=== PATIENT | female | born 1995 | race Caucasian/White ===

== ENCOUNTER 2016-04-03 13:10 | Emergency (ER) | payer BC ==
[2016-04-03] MEDS ORDERED: NS 0.9% 1000 ML* 1,000 ML IV ONE (13:51)
[2016-04-03] MEDS ORDERED: Ketorolac INJ* 30 MG/ML 1 ML VIAL IV ONE (13:51)
--- NOTE | 2016-04-03 13:54 | ED ---
Influenza-Like Illness - HPI Summary HPI Summary: Patient presents due to mouth lesions that appeared last week after she had flu- like symptoms. Last week she had a fever, body aches, and congestion. Seen by [facility] on 03/29 dx with pharyngitis and given steriods. Seen by PCP 03/31 did blood work and gave lidocaine mouth rinse with minimal relief. The lab work has not returned and she is concerned because she can't eat or drink without extreme pain. She took a shower this AM and felt dizzy. She has not taken any medication. Other than dizziness, flu-like symptoms have improved. She has not had an outbreak like this before. She has lesions on her lip, in her mouth and on three of her fingers. One of the lesions ruptured last week and has begun to scab over. Today she denies fever, chills, N/V/D. - History of Current Complaint Hx Obtained From: Patient Onset/Duration: Gradual Onset Severity: Severe Associated Signs & Symptoms: Nasal Congestion <Ze Ward - Last Filed: 04/06/16 11:55> <Nette Quiroz - Last Filed: 04/08/16 07:25> - History of Current Complaint Chief Complaint: EDGeneral Time Seen by Provider: 04/03/16 13:30 - Allergy/Home Medications Allergies/Adverse Reactions: Allergies Allergy/AdvReac Type Severity Reaction Status Date / Time Kiwi Extract Allergy Severe TONGUE, Verified 06/22/15 18:43 THROAT SWELLING PMH/Surg Hx/FS Hx/Imm Hx GI History: Reports: Hx Ulcer - gerd minimal Infectious Disease History: No Infectious Disease History: Denies: History Other Infectious Disease, Traveled Outside the [place] in Last 30 Days - Family History Known Family History: Positive: None - neg for HTn or cad - Social History Occupation: Employed Full-time Lives: With Family Alcohol Use: None Substance Use Type: Reports: None Smoking Status (MU): Former Smoker <Ze Ward - Last Filed: 04/06/16 11:55> Review of Systems Negative: Fever, Chills Positive: Sore Throat - buccal mucosal lesions diffusely present; lesions noted on tongue. Negative: Ear Ache, Nasal Discharge Negative: Chest Pain Negative: Cough Negative: Vomiting, Diarrhea, Nausea Positive: Other - pea size vesicle on dorsum of right small and index finger; same on left middle finger; bottom lip has dime size scabbing lesion. Negative : Bruising Negative: Headache All Other Systems Reviewed And Are Negative: Yes <Ze Ward - Last Filed: 04/06/16 11:55> Physical Exam Triage Information Reviewed: Yes Vital Signs On Initial Exam: Initial Vitals Temp Pulse Resp BP Pulse Ox 97.2 F 111 16 114/62 100 04/03/16 13:12 04/03/16 13:12 04/03/16 13:12 04/03/16 13:12 04/03/16 13:12 Vital Signs Reviewed: Yes Appearance: Positive: Well-Appearing, No Pain Distress, Well-Nourished Skin: Positive: Warm, Skin Color Reflects Adequate Perfusion, Dry, Tender, Soft , Weeping Skin/Lesions - pea size vesicle on dorsum of right small and index finger; same on left middle finger; bottom lip has dime size scabbing lesion Head/Face: Positive: Normal Head/Face Inspection Eyes: Positive: EOMI, ALEKSANDRA, Conjunctiva Clear ENT: Positive: Hearing grossly normal, Pharyngeal erythema - diffuse oral lesions on buccal mucosa and tongue, TMs normal Neck: Positive: Supple, Nontender, No Lymphadenopathy Respiratory/Lung Sounds: Positive: Clear to Auscultation, Breath Sounds Present Cardiovascular: Positive: Tachycardia Abdomen Description: Positive: Nontender, Soft Bowel Sounds: Positive: Present Musculoskeletal: Positive: Strength/ROM Intact. Negative: Edema Left, Edema Right Neurological: Positive: Sensory/Motor Intact, Alert, Oriented to Person Place, Time, NV Bundle Intact Distally Psychiatric: Positive: Affect/Mood Appropriate AVPU Assessment: Alert <Ze Ward - Last Filed: 04/06/16 11:55> Vital Signs On Initial Exam: Initial Vitals Temp Pulse Resp BP Pulse Ox 97.2 F 111 16 114/62 100 04/03/16 13:12 04/03/16 13:12 04/03/16 13:12 04/03/16 13:12 04/03/16 13:12 <Nette Quiroz - Last Filed: 04/08/16 07:25> Diagnostics - Vital Signs Vital Signs Temp Pulse Resp BP Pulse Ox 04/03/16 13:12 97.2 F 111 16 114/62 100 - Laboratory Result Diagrams: 04/03/16 14:00 04/03/16 14:00 Lab Statement: Any lab studies that have been ordered have been reviewed, and results considered in the medical decision making process. <Ze Ward - Last Filed: 04/06/16 11:55> - Vital Signs Vital Signs Temp Pulse Resp BP Pulse Ox 04/03/16 16:16 97.9 F 89 18 128/74 04/03/16 13:12 97.2 F 111 16 114/62 100 - Laboratory Lab Results: Lab Results 04/03/16 04/03/16 04/03/16 Range/Units 13:40 14:00 14:00 WBC 8.3 (3.5-10.8) 10^3/ul RBC 5.07 (4.0-5.4) 10^6/ul Hgb 12.9 (12.0-16.0) g/dl Hct 40 (35-47) % MCV 78 L (80-97) fL MCH 25 L (27-31) pg MCHC 32 (31-36) g/dl RDW 14 (10.5-15) % Plt Count 256 (150-450) 10^3/ul MPV 9 (7.4-10.4) um3 Neut % (Auto) 53.5 (38-83) % Lymph % (Auto) 37.8 (25-47) % Wythe % (Auto) 6.4 (1-9) % Eos % (Auto) 1.2 (0-6) % Baso % (Auto) 1.1 (0-2) % Absolute Neuts (auto) 4.5 (1.5-7.7) 10^3/ul Absolute Lymphs (auto) 3.2 (1.0-4.8) 10^3/ul Absolute Monos (auto) 0.5 (0-0.8) 10^3/ul Absolute Eos (auto) 0.1 (0-0.6) 10^3/ul Absolute Basos (auto) 0.1 (0-0.2) 10^3/ul Absolute Nucleated RBC 0 10^3/ul Nucleated RBC % 0 Sodium 137 (133-145) mmol/L Potassium 3.9 (3.5-5.0) mmol/L Chloride 103 (101-111) mmol/L Carbon Dioxide 25 (22-32) mmol/L Anion Gap 9 (2-11) mmol/L BUN 11 (6-24) mg/dL Creatinine 0.68 (0.51-0.95) mg/dL Est GFR ( Amer) 140.5 (>60) Est GFR (Non-Af Amer) 109.2 (>60) BUN/Creatinine Ratio 16.2 (8-20) Glucose 88 (70-100) mg/dL Calcium 9.4 (8.6-10.3) mg/dL Total Bilirubin 0.40 (0.2-1.0) mg/dL AST 17 (13-39) U/L ALT 26 (7-52) U/L Alkaline Phosphatase 75 (34-104) U/L C-Reactive Protein 60.59 H (< 5.00) mg/L Total Protein 7.4 (6.4-8.9) g/dL Albumin 3.6 (3.2-5.2) g/dL Globulin 3.8 (2-4) g/dL Albumin/Globulin Ratio 0.9 L (1-3) HSV I DNA PCR Positive (Negative) HSV II DNA PCR Negative (Negative) Dermal HSV & VZV Source Finger lesion swab Varicella-Zoster Source Finger lesion swab VZV DNA (PCR) Negative (Negative) Non-Resp Viral Culture TNP Result Diagrams: 04/03/16 14:00 04/03/16 14:00 Lab Statement: Any lab studies that have been ordered have been reviewed, and results considered in the medical decision making process. <Nette Quiroz - Last Filed: 04/08/16 07:25> Flu Symptom Course/Dx - Diagnoses Differential Diagnosis/HQI/PQRI: Positive: Bronchitis, Influenza, Pneumonia, RSV , Upper Respiratory Infection <Ze Ward - Last Filed: 04/06/16 11:55> <Nette Quiroz - Last Filed: 04/08/16 07:25> - Diagnoses Provider Diagnoses: Viral syndrome Discharge <Ze Ward - Last Filed: 04/06/16 11:55> <Nette Quiroz - Last Filed: 04/08/16 07:25> - Discharge Plan Condition: Stable Disposition: HOME Prescriptions: Acyclovir CAP* [Zovirax CAP*] 400 mg PO TID #42 cap Patient Education Materials: Viral Syndrome (ED) Referrals: Red Hernandez, SENIOR GAME DEVELOPER [Primary Care Provider] - Additional Instructions: Please follow-up with your primary care provider in 2-3 days to discuss your continued symptoms and today's visit. Take your medication as prescribed until it is completely gone and use ibuprofen 600mg three times daily with meals for the next 3-5 days to reduce pain and swelling. Return to the emergency department if symptoms worsen. Attestations User Type: Provider - I was available for consult. This patient was seen by the SHIRA. The patient was not presented to, seen by, or examined by me. - SATYA <Nette Quiroz - Last Filed: 04/08/16 07:25>
[2016-04-03 14:13] LABS: Hematocrit 40 % (35-47); Hemoglobin 12.9 g/dl (12.0-16.0); Mean Corpuscular HGB Conc 32 g/dl (31-36); Mean Corpuscular Hemoglobin 25 pg (27-31); Mean Corpuscular Volume 78 fL (80-97); Mean Platelet Volume 9 um3 (7.4-10.4); Red Blood Count 5.07 10^6/ul (4.0-5.4); Red Cell Distribution Width 14 % (10.5-15); White Blood Count 8.3 10^3/ul (3.5-10.8)
[2016-04-03 14:14] LABS: Add Diff/Slide Review? Slide Review Added; Comments Flag Yes
[2016-04-03 14:28] LABS: Albumin 3.6 g/dL (3.2-5.2); BUN/Creatinine Ratio 16.2 (8-20); C Reactive Protein 60.59 mg/L (< 5.00); Calcium 9.4 mg/dL (8.6-10.3); EGFR African American 140.5 (>60); EGFR Non-African American 109.2 (>60); Globulin 3.8 g/dL (2-4); Total Bilirubin 0.4 mg/dL (0.2-1.0); Total Protein 7.4 g/dL (6.4-8.9)
[2016-04-03 14:30] LABS: Potassium 3.9 mmol/L (3.5-5.0)
[2016-04-03] MEDS ORDERED: Acyclovir* 200 MG CAP PO ONE (15:59)
[2016-04-03 16:17] VITALS: BP 128/74
[2016-04-05 23:01] LABS: HS/VZ Source FINGER LESION SWAB; Varicella Zoster Result Negative (Negative); Varicella Zoster Source FINGER LESION SWAB
== END 2016-04-03 16:16 | disposition home or self-care (01) ==
LOC: ED 13:10
DX: B34.9 Viral infection, unspecified (principal); Z87.891 Personal history of nicotine dependence
CPT/HCPCS: 36415; 80053; 85025; 86140; 87252; 87529; 87798; 96374; 96375; 99283; A9270-GY; J1885

== ENCOUNTER 2016-06-21 11:22 | Emergency (ER) | payer BC ==
[2016-06-21 12:22] VITALS: BP 110/68
--- NOTE | 2016-06-21 14:53 | UC ---
FLU HPI - HPI Summary HPI Summary: TWO DAYS OF COUGH WORSE AT NIGHT, NO FEVER, HAD SOME VOMITING YESTERDAY, FROM COUGHING. NO SORE THROAT. 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 Hx Last Menstrual Period: 1 week ago, on oral control Onset/Duration: Gradual Onset, Lasting Days, Still Present Severity Currently: Mild Severity Initially: Mild Pain Intensity: 4 Pain Scale Used: 0-10 Numeric Associated Signs & Symptoms: Positive: Cough, Nasal Congestion, Vomiting Related Hx: Possible Flu/Infectious Exposure - Allergy/Home Medications Allergies/Adverse Reactions: Allergies Allergy/AdvReac Type Severity Reaction Status Date / Time Kiwi Extract Allergy Severe TONGUE, Verified 06/21/16 12:22 THROAT SWELLING Fish Allergy Allergy GI Upset Verified 06/21/16 12:22 PMH/Surg Hx/FS Hx/Imm Hx Previously Healthy: Yes GI/ History Of: Reports: Ulcer - gerd minimal - Surgical History Surgical History: None - Family History Known Family History: Positive: None - neg for HTn or cad Negative: Respiratory Disease - Social History Occupation: Employed Full-time Lives: With Family Alcohol Use: None Substance Use Type: None Smoking Status (MU): Former Smoker When Did the Patient Quit Smoking/Using Tobacco: 1 WK AGO - Immunization History Most Recent Tetanus Shot: 2010 Vaccination Up to Date: Yes Review of Systems Constitutional: Negative Skin: Negative Eyes: Negative ENT: Negative, Nasal Discharge Respiratory: Cough Cardiovascular: Negative Gastrointestinal: Vomiting Genitourinary: Negative Motor: Negative Neurovascular: Negative Musculoskeletal: Myalgia Neurological: Negative Psychological: Negative All Other Systems Reviewed And Are Negative: Yes Physical Exam Triage Information Reviewed: Yes Appearance: No Pain Distress, Well-Nourished, Ill-Appearing - MILD Vital Signs: Initial Vital Signs Temp 98.7 F 06/21/16 12:18 Pulse 98 06/21/16 12:18 Resp 16 06/21/16 12:18 BP 110/68 06/21/16 12:18 Pulse Ox 98 06/21/16 12:18 Vital Signs Reviewed: Yes Eye Exam: Normal Eyes: Positive: Conjunctiva Clear ENT: Positive: Hearing grossly normal, Pharynx normal, TM dull Dental Exam: Normal Neck exam: Normal Neck: Positive: Supple, Nontender, No Lymphadenopathy Respiratory Exam: Other - COUGH Respiratory: Positive: Chest non-tender, Lungs clear, Normal breath sounds, No respiratory distress, No accessory muscle use Cardiovascular Exam: Normal Cardiovascular: Positive: RRR, No Murmur Abdominal Exam: Normal Abdomen Description: Positive: Nontender, No Organomegaly Musculoskeletal Exam: Normal Musculoskeletal: Positive: Strength Intact, ROM Intact, No Edema Neurological Exam: Normal Psychological Exam: Normal Psychological: Positive: Normal Response To Family Skin Exam: Normal Flu Course/Dx - Differential Dx/Diagnosis Differential Diagnosis/HQI/PQRI: Bronchitis, Influenza, Upper Respiratory Infection Provider Diagnoses: UPPER RESPIRATORY INFECTION Discharge - Discharge Plan Condition: Stable Disposition: HOME Prescriptions: Benzonatate CAP* [Tessalon 100 MG CAP*] 100 mg PO TID PRN #15 cap PRN Reason: Cough Patient Education Materials: Upper Respiratory Infection (ED), Viral Syndrome ( ED) Forms: *Work Release Referrals: Bere Moya MD [Primary Care Provider] -
== END 2016-06-21 14:02 | disposition home or self-care (01) ==
LOC: UCCORT 11:22
DX: J06.9 Acute upper respiratory infection, unspecified (principal); Z87.891 Personal history of nicotine dependence
CPT/HCPCS: 87502; 99211; G0463

== ENCOUNTER 2016-07-31 06:51 | Emergency (ER) | payer BC ==
[2016-07-31] MEDS ORDERED: Morphine INJ* 4 MG/ML 1 ML SYRINGE IV ONE ×2 (07:17→07:52)
[2016-07-31] MEDS ORDERED: NS 0.9% 1000 ML* 1,000 ML IV ONE (07:17)
[2016-07-31] MEDS ORDERED: Ondansetron INJ* 2 MG/ML VIAL IV ONE (07:17)
[2016-07-31 07:36] LABS: Hematocrit 39 % (35-47); Hemoglobin 12.4 g/dl (12.0-16.0); Mean Corpuscular HGB Conc 32 g/dl (31-36); Mean Corpuscular Hemoglobin 25 pg (27-31); Mean Corpuscular Volume 79 fL (80-97); Mean Platelet Volume 10 um3 (7.4-10.4); Red Blood Count 4.91 10^6/ul (4.0-5.4); Red Cell Distribution Width 14 % (10.5-15)
[2016-07-31 07:51] LABS: ALT 35 U/L (7-52); AST 21 U/L (13-39); Albumin 3.7 g/dL (3.2-5.2); Alkaline Phosphatase 69 U/L (34-104); Anion Gap 8 mmol/L (2-11); BUN/Creatinine Ratio 13.1 (8-20); Blood Urea Nitrogen 13 mg/dL (6-24); CO2 Carbon Dioxide 22 mmol/L (22-32); Calcium 9.8 mg/dL (8.6-10.3); Chloride 108 mmol/L (101-111); EGFR African American 91.1 (>60); EGFR Non-African American 70.8 (>60); Globulin 3.6 g/dL (2-4); Glucose 132 mg/dL (70-100); Potassium 4.1 mmol/L (3.5-5.0); Sodium 138 mmol/L (133-145); Total Protein 7.3 g/dL (6.4-8.9)
[2016-07-31] MEDS ORDERED: Ketorolac INJ* 30 MG/ML 1 ML VIAL IV PUSH ONE (08:16)
[2016-07-31 09:11] LABS: Urine Bacteria Absent (Absent); Urine Bilirubin Negative (Negative); Urine Glucose Negative (Negative); Urine Nitrite Negative (Negative)
--- NOTE | 2016-07-31 09:15 | RAD ---
INDICATION: Left flank pain. COMPARISON: None TECHNIQUE: Noncontrast axial source images were acquired from the level hemidiaphragms to the symphysis pubis as part of CT imaging for renal stone. Lung bases: The lung bases are clear. Liver: The liver is enlarged with findings of hepatic steatosis. There are focal areas of sparing. Suggest correlation with liver enzymes. Noncontrast imaging shows no evidence of a hepatic mass or ductal dilatation. Gallbladder: There are no calcified gallstones. There is no evidence of wall thickening or pericholecystic fluid.. Spleen: The spleen is normal in size. The noncontrast CT appearance is normal. Pancreas: Noncontrast imaging shows no pancreatic mass or ductal dilitation. Adrenal glands: No masses are identified. Kidneys/Bladder: There is mild facet hydronephrosis and hydroureter with a 4 mm calculus at the left UVJ. There are no other calcifications of urinary significance. The bladder is otherwise unremarkable. Adenopathy: There is no evidence of intraperitoneal or retroperitoneal adenopathy. Evaluation is limited without oral contrast. Fluid collections: There are no free or localized fluid collections. Vessels: The aorta and iliac vessels are normal in caliber. There are no significant atherosclerotic changes. The IVC appears normal Pelvic organs: The uterus and adnexa appear normal GI tract: Evaluation of the bowel is limited without oral contrast. The stomach, small bowel, and lower GI tract appear grossly normal. There are no obstructive findings. The appendix is visualized and appears normal. Soft tissues: No soft tissue abnormalities of the extraperitoneal abdomen or pelvis are identified. Osseous structures: There are no acute osseous findings. IMPRESSION: 1. Hepatomegaly with heterogeneous liver with fatty infiltration with focal areas of sparing. 2. Left UVJ calculus with mild obstructive findings.
[2016-07-31 09:55] VITALS: BP 117/62
--- NOTE | 2016-08-02 18:23 | ED ---
Nicolás Pineda Matthew, scribed for Jorge Cuevas MD on 07/31/16 at 0739 . Abdominal Pain/Female - HPI Summary HPI Summary: A 20 y/o female presents to the ED with left flank pain that radiates into the lower abdomen since 07/29, which worsened today at 04:00 and became constant. The pain is rated 10/10 in severity. The pain is worse with movement. Associated symptoms include vomiting, fever, chills, diaphoresis, back pain, decreased appetite and nausea. The patient denies dysuria, diarrhea, and hematuria. FHx of kidney stones. No smoking and no drinking. Hx of UTI. LNMP -- currently - History of Current Complaint Chief Complaint: EDFlankPain Stated Complaint: LEFT FLANK PAIN Hx Obtained From: Patient Hx Last Menstrual Period: 1 week ago, on oral control ?: No Onset/Duration: Gradual Onset, Lasting Days, Still Present Timing: Constant Severity Initially: Moderate Severity Currently: Moderate Pain Intensity: 10 Pain Scale Used: 0-10 Numeric Location: Flank - LT Radiates: Yes Allergies/Adverse Reactions: Allergies Allergy/AdvReac Type Severity Reaction Status Date / Time Kiwi Extract Allergy Severe TONGUE, Verified 07/31/16 06:58 THROAT SWELLING Fish Allergy Allergy GI Upset Verified 07/31/16 06:58 PMH/Surg Hx/FS Hx/Imm Hx GI History: Reports: Hx Ulcer - gerd minimal Infectious Disease History: No Infectious Disease History: Denies: History Other Infectious Disease, Traveled Outside the [place] in Last 30 Days - Family History Known Family History: Positive: None - neg for HTn or cad Negative: Respiratory Disease - Social History Alcohol Use: None Substance Use Type: Reports: None Smoking Status (MU): Former Smoker Review of Systems Constitutional: Other - Decreased appetite Positive: Fever, Chills, Skin Diaphoresis Eyes: Negative Negative: Erythema ENT: Negative Negative: Sore Throat Cardiovascular: Negative Negative: Chest Pain Respiratory: Negative Negative: Shortness Of Breath Positive: Abdominal Pain - LT flank pain , Vomiting, Nausea. Negative: Diarrhea Genitourinary: Negative Negative: dysuria, hematuria Positive: Myalgia - back pain Skin: Negative Negative: Rash Neurological: Negative Negative: Headache Psychological: Normal All Other Systems Reviewed And Are Negative: Yes Physical Exam Triage Information Reviewed: Yes Vital Signs On Initial Exam: Initial Vitals Temp Pulse Resp BP Pulse Ox 97.3 F 72 16 100/51 100 07/31/16 06:51 07/31/16 06:51 07/31/16 06:51 07/31/16 06:51 07/31/16 06:51 Vital Signs Reviewed: Yes Appearance: Positive: Well-Appearing, Pain Distress - mild to moderate Skin: Positive: Warm, Dry Head/Face: Positive: Other - Normocephalic; Atraumatic Eyes: Positive: Conjunctiva Clear ENT: Positive: Normal ENT inspection Dental: Negative: Cervical Lymphadenopathy Neck: Positive: No Lymphadenopathy, Other: - Full ROM; no JVD Respiratory/Lung Sounds: Positive: Other - NOrmal Effort; No respiratory distress. Negative: Rales, Rhonchi, Stridor, Tracheal Deviation, Wheezes Cardiovascular: Positive: RRR, Other - Rhythm regular, rate normal, Heart sounds normal; Intact distal pulses; The pedal pulses are 2+ and symmetric. Radial pulses are 2+ and symmetric. Negative: Murmur Abdomen Description: Positive: Nontender, Soft, CVA Tenderness (L), Other: - No Rebound. Negative: Distended, Guarding Bowel Sounds: Positive: Present Musculoskeletal: Negative: Edema Left, Edema Right Neurological: Positive: Alert, Oriented to Person Place, Time Psychiatric: Positive: Affect/Mood Appropriate Diagnostics - Vital Signs Vital Signs Temp Pulse Resp BP Pulse Ox 07/31/16 06:58 97.3 F 72 16 100/51 100 07/31/16 06:51 97.3 F 72 16 100/51 100 - Laboratory Result Diagrams: 07/31/16 07:25 07/31/16 07:25 Lab Statement: Any lab studies that have been ordered have been reviewed, and results considered in the medical decision making process. - CT A/P CT CT Interpretation: Positive (See Comments) - IMPRESSION: 1. Hepatomegaly with heterogeneous liver with fatty infiltration with focal areas of sparing. 2. Left UVJ calculus with mild obstructive findings. CT Interpretation Completed By: Radiologist Abdominal Pain Fem Course/Dx - Course Course Of Treatment: A 20 y/o female presents to the ED with left flank pain that radiates into the lower abdomen since 07/29, which worsened today at 04:00 and became constant. The pain is rated 10/10 in severity. The pain is worse with movement. Associated symptoms include vomiting, fever, chills, diaphoresis , back pain, decreased appetite and nausea. The patient denies dysuria, diarrhea , and hematuria. FHx of kidney stones. Labs results were reviewed. CT A/P shows hepatomegaly with heterogeneous liver with fatty infiltration with focal areas of sparing. 2. Left UVJ calculus with mild obstructive findings. In the ED course, the patient was given Toradol, morphine, Zofran, and IV fluids. The patient will follow-up with Dr. Villasenor. - Diagnoses Provider Diagnoses: Ureteral stone Discharge - Discharge Plan Condition: Stable Disposition: HOME Patient Education Materials: Kidney Stones (ED) Forms: *Work Release Referrals: Zaid Villasenor MD [Medical Doctor] - 3 Days Additional Instructions: Please follow-up with Dr. Villasenor in 2 days. The documentation as recorded by the Nicolás stone Matthew accurately reflects the service I personally performed and the decisions made by , Jorge Cuevas MD.
== END 2016-07-31 09:54 | disposition home or self-care (01) ==
LOC: ED 06:51
DX: N20.1 Calculus of ureter (principal); R16.0 Hepatomegaly, not elsewhere classified; R10.84 Generalized abdominal pain; R11.2 Nausea with vomiting, unspecified; Z87.891 Personal history of nicotine dependence; R50.9 Fever, unspecified
CPT/HCPCS: 36415; 74176; 80053; 81003; 81015; 83605; 84702; 85025; 87086; 96374; 96375; 99283; J1885; J2270; J2405

== ENCOUNTER 2016-09-06 14:04 | Emergency (ER) | payer BC ==
[2016-09-06 15:01] LABS: Hematocrit 37 % (35-47); Hemoglobin 11.7 g/dl (12.0-16.0); Mean Corpuscular HGB Conc 32 g/dl (31-36); Mean Corpuscular Hemoglobin 26 pg (27-31); Mean Corpuscular Volume 80 fL (80-97); Mean Platelet Volume 11 um3 (7.4-10.4); Red Blood Count 4.58 10^6/ul (4.0-5.4); Red Cell Distribution Width 14 % (10.5-15); White Blood Count 9.5 10^3/ul (3.5-10.8)
[2016-09-06 15:18] LABS: Albumin 3.8 g/dL (3.2-5.2); BUN/Creatinine Ratio 11.3 (8-20); Calcium 9.6 mg/dL (8.6-10.3); EGFR African American 133.6 (>60); EGFR Non-African American 103.9 (>60); Globulin 3.3 g/dL (2-4); Potassium 3.6 mmol/L (3.5-5.0); Total Bilirubin 0.2 mg/dL (0.2-1.0); Total Protein 7.1 g/dL (6.4-8.9)
[2016-09-06] MEDS ORDERED: Acetaminophen TAB* 325 MG PO ONE (16:39)
[2016-09-06 17:54] LABS: Hematocrit 36 % (35-47); Hemoglobin 11.9 g/dl (12.0-16.0)
--- NOTE | 2016-09-06 18:08 | ED ---
Kimberlee Pineda SooYoung, scribed for Lamont Chamorro MD on 09/06/16 at 1444 . GI/ HPI - HPI Summary HPI Summary: A 20 y/o F presents to ED with melena 2x first noticed at 0900 today. Associated sx: diarrhea (1x) at 0400, mild abd pain. Denies n/v, constipation. Yesterday, she says her BM was nml, and she states mild straining. The blood was bright red and mucosal. She hasn't traveled recently. No prev episodes of melena. Is on Protonix for GERD. PMHx also include kidney stones. - History of Current Complaint Chief Complaint: EDGIBleed Time Seen by Provider: 09/06/16 14:25 Stated Complaint: BLOOD IN STOOL Hx Obtained From: Patient Onset/Duration: Started Hours Ago Timing: Intermittent Vaginal Bleeding Description: Bright Red Pain Intensity: 2 - out of 10 Associated Signs and Symptoms: Positive: Blood w/Stool, Diarrhea, Abdominal Pain. Negative: Constipation - Allergy/Home Medications Allergies/Adverse Reactions: Allergies Allergy/AdvReac Type Severity Reaction Status Date / Time Kiwi Extract Allergy Severe TONGUE, Verified 09/06/16 14:12 THROAT SWELLING Fish Allergy Allergy GI Upset Verified 09/06/16 14:12 PMH/Surg Hx/FS Hx/Imm Hx Previously Healthy: Yes GI History: Reports: Hx Ulcer - gerd minimal History: Reports: Hx Kidney Stones Opthamlomology History: Denies: Hx Legally Blind Infectious Disease History: No Infectious Disease History: Denies: History Other Infectious Disease, Traveled Outside the [place] in Last 30 Days - Family History Known Family History: Negative: Cardiac Disease, Hypertension, Respiratory Disease - Social History Occupation: Employed Full-time Lives: With Family Alcohol Use: Rare Hx Substance Use: No Substance Use Type: Reports: None Hx Tobacco Use: Yes Smoking Status (MU): Former Smoker Review of Systems Positive: Abdominal Pain - mild, Diarrhea, Other - pos: melena; neg: constipation. Negative: Vomiting, Nausea All Other Systems Reviewed And Are Negative: Yes Physical Exam - Summary Physical Exam Summary: VITAL SIGNS: Reviewed. GENERAL: Patient is a well-developed and nourished female who is lying comfortable in the stretcher. Patient is not in any acute respiratory distress. HEAD AND FACE: Normocephalic and atraumatic. EYES: PERRLA, EOMI x 2, No injected conjunctiva. EARS: Hearing grossly intact. Ear canals and tympanic membranes are WNL. MOUTH: Oropharynx within normal limits. NECK: Supple, trachea is midline, no adenopathy, no JVD. CHEST: Symmetric, no tenderness at palpation LUNGS: Clear to auscultation bilaterally. No wheezing or crackles. CVS: RRR, S1 and S2 present, no murmurs or gallops appreciated. ABDOMEN: Soft, non-tender. No signs of distention. Positive bowel sounds. No rebound, no guarding, and no masses palpated. No abdominal bruit or pulsations. 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 EXTREMITIES: FROM in all major joints, no edema, no cyanosis or clubbing. NEURO: Alert and oriented x 3. No acute neurological deficits. Speech is normal. SKIN: Dry and warm Triage Information Reviewed: Yes Vital Signs On Initial Exam: Initial Vitals Temp Pulse Resp BP Pulse Ox 97.8 F 95 15 145/76 100 09/06/16 14:08 09/06/16 14:08 09/06/16 14:08 09/06/16 14:08 09/06/16 14:08 Vital Signs Reviewed: Yes - Loreta Coma Scale Coma Scale Total: 15 Diagnostics - Vital Signs Vital Signs Temp Pulse Resp BP Pulse Ox 09/06/16 14:17 100 98 09/06/16 14:16 141/77 09/06/16 14:08 97.8 F 95 17 145/76 100 - Laboratory Result Diagrams: 09/06/16 17:45 09/06/16 14:40 Lab Statement: Any lab studies that have been ordered have been reviewed, and results considered in the medical decision making process. GIGU Course/Dx - Course Assessment/Plan: A 20 y/o F presents to ED with melena 2x first noticed at 0900 today. Associated sx: diarrhea (1x) at 0400, mild abd pain. Denies n/v, constipation. Yesterday, she says her BM was nml, and she states mild straining. The blood was bright red and mucosal. She hasn't traveled recently. No prev episodes of melena. Is on Protonix for GERD. PMHx also include kidney stones. In the ED course an IV access was obtained. Patient was placed in a ekg monitor tech. Labs within normal limits except for Hb 11.7. After 3 hours I repeated the Hb and it is 11.9. GUaiac is negative for blood. She reports that she has been straining with every BM. She was observed for 4 hours and she had no diarrhea or episodes of bleeding. I discussed all the findings and test results with the patient. Patient was instructed to return to the emergency room immediately if any of the symptoms return or worsens. Plan of care was discussed with the patient and understands and agrees. All questions were answered at patient satisfaction. There were no further complaints or concerns. Lung exam before discharge: CTA B/L. Good air exchange. No wheezing or crackles heard. CVS: S1 and S2 present. No murmurs appreciated. Patient is alert and oriented x 3. Patient is hemodynamically stable. Patient will be discharged home with follow up PCP in the next 2-3 days - Diagnoses Differential Diagnoses - Female: Colitis, Diverticulitis, Hemorrhoids, Rectal Fissure Provider Diagnoses: Rectal bleed Discharge - Discharge Plan Condition: Stable Disposition: HOME Patient Education Materials: Acute Diarrhea (ED), Rectal Bleeding (ED) The documentation as recorded by the Kimberlee stone SooYoung accurately reflects the service I personally performed and the decisions made by , Lamont Chamorro MD.
[2016-09-06 19:06] VITALS: BP 110/62
== END 2016-09-06 19:06 | disposition home or self-care (01) ==
LOC: ED 14:04
DX: K92.2 Gastrointestinal hemorrhage, unspecified (principal); R19.7 Diarrhea, unspecified; R10.9 Unspecified abdominal pain; Z87.891 Personal history of nicotine dependence
CPT/HCPCS: 36415; 80053; 82270; 85014; 85018; 85025; 85610; 85730; 99283; A9270-GY

== ENCOUNTER 2018-12-10 14:12 | Emergency (ER) | payer BC, OTHER ==
[2018-12-10] MEDS ORDERED: Acetaminophen TAB* 325 MG PO ONE (14:57)
--- NOTE | 2018-12-10 15:14 | ED ---
Abdominal Pain/Female - HPI Summary HPI Summary: This patient is a 22 year old F presenting to [facility] with a chief complaint of pain in R flank radiating to abdomen since a few hours ago. Pt is 10 weeks . This is her first . Per triage, the patient rates the pain 10 /10 in severity. Patient reports chronic vaginal discharge, chills, chronic nausea and vomiting, and constipation. Patient denies diarrhea. She has a PMHx of GERD and kidney stones. Pt has not taken any pain medications today. Medications reviewed. Allergies noted - History of Current Complaint Chief Complaint: EDBackInjuryPain Stated Complaint: 10 WKS PRE ABD PAIN PER PT Time Seen by Provider: 12/10/18 15:03 Hx Obtained From: Patient Hx Last Menstrual Period: approx two months ago ?: Yes Onset/Duration: Sudden Onset, Lasting Hours, Still Present Timing: Hours Severity Initially: Severe Severity Currently: Severe Pain Intensity: 10 Pain Scale Used: 0-10 Numeric Location: Flank Radiates: Yes Radiates to: Other - abdomen Aggravating Factor(s): Nothing Alleviating Factor(s): Nothing Associated Signs and Symptoms: Positive: Vaginal Discharge, Nausea, Vomiting, Other: - chills Allergies/Adverse Reactions: Allergies Allergy/AdvReac Type Severity Reaction Status Date / Time kiwi Allergy Severe See Comment Verified 12/10/18 15:40 Fish Containing Products Allergy GI Upset Verified 12/10/18 15:40 PMH/Surg Hx/FS Hx/Imm Hx GI History: Reports: Hx Gastroesophageal Reflux Disease, Hx Ulcer - gerd minimal History: Reports: Hx Kidney Stones Sensory History: Denies: Hx Legally Blind Opthamlomology History: Denies: Hx Legally Blind - Surgical History Surgical History: None Infectious Disease History: No Infectious Disease History: Denies: History Other Infectious Disease, Traveled Outside the [place] in Last 30 Days - Family History Known Family History: Negative: Cardiac Disease, Hypertension, Respiratory Disease - Social History Alcohol Use: Rare Hx Substance Use: No Substance Use Type: Reports: None Hx Tobacco Use: Yes Smoking Status (MU): Former Smoker Review of Systems Positive: Chills Positive: Abdominal Pain, Vomiting, Nausea, Other - Constipation. Negative: Diarrhea Positive: discharge All Other Systems Reviewed And Are Negative: Yes Physical Exam - Summary Physical Exam Summary: Constitutional: Well-developed, Well-nourished, Alert. (-) Distressed Skin: Warm, Dry HENT: Normocephalic; Atraumatic Eyes: Conjunctiva normal Neck: Musculoskeletal ROM normal neck. (-) JVD, (-) Stridor, (-) Tracheal deviation Cardio: Rhythm regular, rate normal, Heart sounds normal; Intact distal pulses; The pedal pulses are 2+ and symmetric. Radial pulses are 2+ and symmetric. (-) Murmur Pulmonary/Chest wall: Effort normal. (-) Respiratory distress, (-) Wheezes, (-) Rales Abd: Soft, (-) tenderness, (-) Distension, (-) Guarding, (-) Rebound, No point tenderness Musculoskeletal: (-) Edema Lymph: (-) Cervical adenopathy Neuro: Alert, Oriented x3 Psych: Mood and affect Normal Bedside Ultrasound: no hydronephrosis in R kidney, no IUP identified Triage Information Reviewed: Yes Vital Signs On Initial Exam: Initial Vitals Temp Pulse Resp BP Pulse Ox 97.3 F 67 18 125/65 100 12/10/18 14:15 12/10/18 14:15 12/10/18 14:15 12/10/18 14:15 12/10/18 14:15 Vital Signs Reviewed: Yes Diagnostics - Vital Signs Vital Signs Temp Pulse Resp BP Pulse Ox 12/10/18 14:15 97.3 F 67 18 125/65 100 - Laboratory Result Diagrams: 12/10/18 15:14 12/10/18 15:14 Lab Statement: Any lab studies that have been ordered have been reviewed, and results considered in the medical decision making process. - Ultrasound Transvaginal US Ultrasound Interpretation Completed By: Radiologist Summary of Ultrasound Findings: Transvaginal US reveals, per radiologist, IMPRESSION: 1. EARLY INTRAUTERINE WITH AN ESTIMATED GESTATIONAL AGE OF 8 WEEKS 4 DAYS BYCROWN-RUMP LENGTH. 2. PROBABLE SMALL SUBCHORIONIC HEMATOMA. 3. COMPLEX RIGHT OVARIAN CYST SUGGESTIVE OF A CORPUS LUTEUM CYST. ED physician has reviewed this radiology report. Re-Evaluation - Re-Evaluation First Eval Re-Evaluation Time: 17:27 Comment: Discussed plan of care with pt. Abdominal Pain Fem Course/Dx - Course Course Of Treatment: Patient is here with symptoms consistent with nephrolithiasis. Patient has a history of this discomfort located by her 8 week . Patient had and also showed an IUP. Patient had been several shots of no right kidney hydronephrosis. Patient has no fevers or chills [place]zz[place]. Some pain. Patient has no leukocytosis. Patient had a UA which showed blood with also evidence of infection. Urology weighed in with stating that this is likely from the stone but she should be started on antibiotics. Patient's urine was sent for culture. Patient follow up with [facility] as soon as possible. - Diagnoses Provider Diagnoses: Right kidney stone, Possible urinary tract infection - Provider Notifications Discussed Care Of Patient With: Obi Salazar Time Discussed With Above Provider: 17:22 Instructed by Provider To: Other - Discussed case with Dr. Salazar, who suggest follow up with OB after placing pt on antibiotics. Discharge ED - Sign-Out/Discharge Documenting (check all that apply): Patient Departure Patient Received Moderate/Deep Sedation with Procedure: No - Discharge Plan Condition: Stable Disposition: HOME Prescriptions: Acetaminop/Codeine 30 MG TAB* [Tylenol/Codeine 30 MG TAB*] 1 tab PO Q8H PRN #20 tab MDD 3 tablets PRN Reason: Pain - Moderate Cephalexin CAP* [Keflex CAP*] 500 mg PO TID 7 Days #21 cap Patient Education Materials: Kidney Stones (ED), Urinary Tract Infection in (ED) Referrals: Bere Moya MD [Primary Care Provider] - Maren Evans MD [Medical Doctor] - 3 Days Additional Instructions: Start antibiotics and pain medication. Follow up with OBGYN in 1-3 days, Come back to ED for fever, uncontrolled vomiting and any other worsening symptoms. - Billing Disposition and Condition Condition: STABLE Disposition: Home - Attestation Statements Document Initiated by Estela: Yes Documenting Scribe: Meredith Suero Provider For Whom Estela is Documenting (Include Credential): Dre Steward MD Scribe Attestation: Meredith Pineda scribed for Dre Steward MD on 12/10/18 at 1923. Scribe Documentation Reviewed: Yes Provider Attestation: The documentation as recorded by the Meredith stone accurately reflects the service I personally performed and the decisions made by , Dre Steward MD Status of Scribe Document: Viewed
[2018-12-10 15:28] LABS: ABS Basophils 0.1 10^3/ul (0-0.2); ABS Lymphocytes 1.8 10^3/ul (1.0-4.8); ABS Monocytes 0.7 10^3/ul (0-0.8); ABS Neutrophils 7.2 10^3/ul (1.5-7.7); Eosinophil % 0.2 %; Hematocrit 34 % (35-47); Hemoglobin 11.5 g/dL (12.0-16.0); Lymphocyte % 18.3 %; Mean Corpuscular HGB Conc 34 g/dL (31-36); Mean Corpuscular Hemoglobin 27 pg (27-31); Mean Corpuscular Volume 81 fL (80-97); Mean Platelet Volume 9.3 fL (7.4-10.4); Platelet Count 248 10^3/uL (150-450); Red Blood Count 4.23 10^6 /uL (3.70-4.87); Red Cell Distribution Width 16 % (10-15); White Blood Count 9.7 10^3/uL (3.5-10.8)
[2018-12-10 16:02] LABS: BUN/Creatinine Ratio 19.4 (8-20); Calcium 9.6 mg/dL (8.6-10.3); EGFR Non-African American 109.1 (>60); Potassium 3.8 mmol/L (3.5-5.0)
[2018-12-10] MEDS ORDERED: oxyCODONE TAB* 5 MG TAB PO ONE (16:24)
[2018-12-10 16:48] LABS: Urine Appearance Turbid; Urine Bacteria 2+ (Absent); Urine Bilirubin Negative (Negative); Urine Blood Negative (Negative); Urine Color Amber; Urine Glucose Negative (Negative); Urine Ketones 2+ (Negative); Urine Nitrite Negative (Negative); Urine Protein 1+(30 mg/dL) (Negative); Urine Red Blood Cell 3+(>10/hpf) (Absent); Urine Squamous Epithelial Cell Present (Absent); Urine Urobilinogen Negative (Negative); Urine White Blood Cell 3+(>20/hpf) (Absent)
[2018-12-10 17:38] VITALS: BP 119/68
== END 2018-12-10 17:37 | disposition home or self-care (01) ==
LOC: ED 14:12
DX: O34.81 Maternal care for other abnormalities of pelvic organs, first trimester (principal); O21.0 Mild hyperemesis gravidarum; N83.291 Other ovarian cyst, right side; N89.8 Other specified noninflammatory disorders of vagina; Z3A.08 8 weeks gestation of pregnancy; Z87.442 Personal history of urinary calculi; Z91.013 Allergy to seafood; Z91.018 Allergy to other foods; Z87.891 Personal history of nicotine dependence
CPT/HCPCS: 36415; 76817; 80048; 81003; 81015; 84702; 85025; 87086; 99283; A9270-GY

== ENCOUNTER 2019-04-01 15:59 | Emergency (ER) | payer OTHER ==
[2019-04-01 16:19] VITALS: BP 111/61
--- NOTE | 2019-04-01 17:12 | UC ---
Complaint Female HPI - HPI Summary HPI Summary: PATIENT ARRIVES WITH ONSET OF RIGHT FLANK PAIN AND RIGHT PELVIC PRESSURE SINCE THIS MORNING. SHE IS 24 WEEKS INTO HER FIRST AND HAS A HISTORY OF RIGHT-SIDED KIDNEY STONES. SHE WAS TREATED FOR THIS IN THE ER IN OF THIS YEAR WHEN SHE WAS 8 WEEKS . SHE STATES HER SYMPTOMS TODAY FEEL THE SAME ONLY SLIGHTLY WORSE. NO NAUSEA OR FEVER. BABY IS MOVING WELL. NO VAGINAL BLEEDING OR DISCHARGE. NO LOSS OF FLUID. NO CONTRACTIONS. CALLED HER PRACTICE LEAD WHO ADVISED HER TO COME TO THE FOR FURTHER EVALUATION. - History Of Current Complaint Chief Complaint: UCGU Stated Complaint: KIDNEY AREA PAIN Time Seen by Provider: 04/01/19 16:29 Hx Obtained From: Patient Hx Last Menstrual Period: approx two months ago Onset/Duration: Gradual Onset, Lasting Hours, Still Present Timing: Constant Severity Initially: Moderate Severity Currently: Moderate Pain Intensity: 7 Pain Scale Used: 0-10 Numeric Character: Sharp Aggravating Factor(s): Movement Alleviating Factor(s): Nothing Associated Signs And Symptoms: Positive: Back Pain. Negative: Vaginal Bleeding/ Discharge, Nausea - Allergies/Home Medications Allergies/Adverse Reactions: Allergies Allergy/AdvReac Type Severity Reaction Status Date / Time kiwi Allergy Severe See Comment Verified 04/01/19 16:19 Fish Containing Products Allergy GI Upset Verified 04/01/19 16:19 Home Medications: Home Medications Famotidine TAB* [Pepcid 20 MG TAB*] 20 mg PO DAILY 04/01/19 [History Confirmed 04/01/19] PMH/Surg Hx/FS Hx/Imm Hx GI/ History: Gastroesophageal Reflux, Kidney Stones - Surgical History Surgical History: None - Family History Known Family History: Negative: Cardiac Disease, Hypertension, Respiratory Disease - Social History Alcohol Use: None Substance Use Type: None Smoking Status (MU): Former Smoker When Did the Patient Quit Smoking/Using Tobacco: 1 WK AGO - Immunization History Most Recent Tetanus Shot: 2010 Vaccination Up to Date: Yes Review of Systems All Other Systems Reviewed And Are Negative: Yes Constitutional: Positive: Negative Respiratory: Positive: Negative Cardiovascular: Positive: Negative Gastrointestinal: Positive: Abdominal Pain. Negative: Nausea Genitourinary: Positive: Frequency, Urgency. Negative: Dysuria Physical Exam Triage Information Reviewed: Yes Appearance: Well-Appearing, No Pain Distress, Well-Nourished Vital Signs: Initial Vital Signs Temp 98.4 F 04/01/19 16:15 Pulse 69 04/01/19 16:15 Resp 12 04/01/19 16:15 BP 111/61 04/01/19 16:15 Pulse Ox 99 04/01/19 16:15 Laboratory Tests 04/01/19 16:28 POC Urine Color Yellow POC Urine Clarity Cloudy POC Urine pH 6.0 POC Ur Specif Ora <= 1.005 L POC Urine Protein Negative POC Ur Glucose (UA) Negative POC Urine Ketones Negative POC Urine Blood 3+ A POC Urine Nitrite Negative POC Urine Bilirubin Negative POC Urine Urobilinogen 0.2 POC U Leukocyte Esteras Negative Vital Signs Reviewed: Yes Eyes: Positive: Conjunctiva Clear ENT: Positive: Hearing grossly normal Neck: Positive: Supple Respiratory: Positive: No respiratory distress, No accessory muscle use Cardiovascular: Positive: Pulses Normal Abdomen Description: Positive: Nontender, Soft - GRAVID, CVA Tenderness (R). Negative: CVA Tenderness (L), Distended, Guarding Musculoskeletal: Positive: No Edema Neurological: Positive: Alert Psychological: Positive: Age Appropriate Behavior Skin: Negative: Rashes Diagnostics - Radiology RENAL US Radiology Interpretation Completed By: Radiologist Summary of Radiographic Findings: MODERATE RIGHT HYDRONEPHROSIS AND NO RIGHT URETERAL VESICLE JET WAS SEEN SUGGESTING THE POSSIBILITY OF A RIGHT URETERAL CALCULUS. Complaint Female Dx - Course Course Of Treatment: 24 WEEK PATIENT COMES IN WITH RIGHT FLANK PAIN AND RIGHT LOWER PELVIC PAIN CONSISTENT WITH HER PREVIOUS KIDNEY STONE SYMPTOMS. NO NAUSEA OR FEVER. ULTRASOUND OBTAINED AND SHOWED MILD RIGHT HYDRONEPHROSIS AND LACK OF A RIGHT SIDED URETERAL JET SUGGESTING POSSIBLE OBSTRUCTIVE URETERAL CALCULUS. DISCUSSED CASE WITH BOTH UROLOGY AND PRACTICE LEAD. OPTIONS INCLUDE ADMISSION TO THE L &D FLOOR FOR PAIN MANAGEMENT AND MONITORING VERSUS HOME WITH CAREFUL OBSERVATION AND CLOSE FOLLOW-UP WITH OB IN THE NEXT COUPLE OF DAYS, GOING TO THE ER IF SYMPTOMS GET WORSE. PATIENT OPTS FOR HOME WITH CAREFUL OBSERVATION. I THINK THIS IS REASONABLE. PRESCRIPTIONS FOR FLOMAX AND HYDROCODONE PROVIDED. PT WILL STAY HYDRATED AND TAKE TYLENOL FOR PAIN RESERVING HYDROCODONE FOR BREAKTHROUGH. COUNSELED TO USE CAUTION WITH OPIOIDS IN . - Differential Dx/Diagnosis Provider Diagnosis: Hydronephrosis, right Discharge ED - Sign-Out/Discharge Documenting (check all that apply): Patient Departure All imaging exams completed and their final reports reviewed: Yes - Discharge Plan Condition: Stable Disposition: HOME Prescriptions: HYDROcodone/ACETAMIN 5-325 MG* [[place] 5-325 TAB*] 1 tab PO Q6H PRN #15 tab MDD 4 PRN Reason: Pain Tamsulosin CAP* [Flomax CAP*] 0.4 mg PO DAILY #7 cap Patient Education Materials: Kidney Stones (ED) Referrals: [facility] [Provider Group] - 2 Days Bere Moya MD [Primary Care Provider] - If Needed Additional Instructions: ULTRASOUND TODAY SHOWED MODERATE RIGHT HYDRONEPHROSIS AND NO URETERAL JET INDICATING A POSSIBLE OBSTRUCTIVE RIGHT KIDNEY STONE. TAKE FLOMAX ONCE DAILY TO HELP ENCOURAGE STONE PASSAGE. TYLENOL NEEDED FOR DISCOMFORT. HYDROCODONE SPARINGLY FOR BREAKTHROUGH. BE AWARE THAT THIS MEDICATION DOES CROSS OVER TO THE FETUS. IF YOU'RE HAVING TO TAKE NARCOTIC PAIN MEDICATION MORE THAN ONCE OR TWICE A DAY I WOULD RECOMMEND YOU GO TO THE LABOR AND DELIVERY UNIT AT THE HOSPITAL WHERE YOU CAN BE ADMITTED FOR MONITORING AND PAIN MANAGEMENT. CALL YOUR OB FIRST THING IN THE MORNING TO NOTIFY THEM OF YOUR CONDITION. - Billing Disposition and Condition Condition: STABLE Disposition: Home
== END 2019-04-01 19:12 | disposition home or self-care (01) ==
LOC: UCEAST 15:59
DX: O99.612 Diseases of the digestive system complicating pregnancy, second trimester (principal); O99.89 Other specified diseases and conditions complicating pregnancy, childbirth and the puerperium; N13.30 Unspecified hydronephrosis; K21.9 Gastro-esophageal reflux disease without esophagitis; Z87.891 Personal history of nicotine dependence; Z87.442 Personal history of urinary calculi; Z79.899 Other long term (current) drug therapy; Z91.018 Allergy to other foods; Z91.013 Allergy to seafood
CPT/HCPCS: 76775; 81003; 99212; G0463

== ENCOUNTER 2019-04-02 01:18 | Emergency (ER) | payer OTHER ==
[2019-04-02] MEDS ORDERED: NS 0.9% 1000 ML** 1,000 ML IV ONE (02:20)
--- NOTE | 2019-04-02 02:22 | ED ---
Back Pain - HPI Summary HPI Summary: Pt is a 23 y/o F presenting to the ED with a chief complaint of R-sided lower back pain initially onset a couple of days ago. She went to where she had an ultrasound done and was advised to come here for further workup, but instead opted to do at-home tx. She states her pain has worsened and is not alleviated by anything, including Hydrocodone, she is nauseous, and reports two episodes of emesis. She is 24wks gestation. - History of Current Complaint Chief Complaint: EDFlankPain Stated Complaint: KIDNEY STONE PAIN/24WK PREG PER PT Time Seen by Provider: 04/02/19 02:03 Hx Obtained From: Patient Hx Last Menstrual Period: approx two months ago Onset/Duration: Gradual Onset, Lasting Days, Still Present Onset/Duration: Started Days Ago, Still Present Timing: Constant Severity Initially: Moderate Severity Currently: Severe Pain Intensity: 10 Pain Scale Used: 0-10 Numeric Aggravating Symptom(s): Nothing Alleviating Symptom(s): Nothing Associated Signs And Symptoms: Positive: Abdominal Pain, Flank Pain - Allergies/Home Medications Allergies/Adverse Reactions: Allergies Allergy/AdvReac Type Severity Reaction Status Date / Time kiwi Allergy Severe See Comment Verified 04/02/19 01:51 Fish Containing Products Allergy GI Upset Verified 04/02/19 01:51 Home Medications: Home Medications Vitamin TAB* 1 tab PO DAILY 04/02/19 [History Confirmed 04/02/19] PMH/Surg Hx/FS Hx/Imm Hx Previously Healthy: Yes Endocrine/Hematology History: Denies: Hx Diabetes GI History: Reports: Hx Gastroesophageal Reflux Disease, Hx Ulcer - gerd minimal History: Reports: Hx Kidney Stones Sensory History: Denies: Hx Legally Blind Opthamlomology History: Denies: Hx Legally Blind Infectious Disease History: No Infectious Disease History: Denies: History Other Infectious Disease, Traveled Outside the [place] in Last 30 Days - Family History Known Family History: Negative: Cardiac Disease, Hypertension, Respiratory Disease - Social History Alcohol Use: None Hx Substance Use: No Substance Use Type: Reports: None Hx Tobacco Use: Yes Smoking Status (MU): Former Smoker Review of Systems - ROS Summary Review of Systems Summary: Home Medications Medication Instructions Recorded Confirmed Type Famotidine TAB* [Pepcid 20 MG TAB*] 20 mg PO DAILY 04/01/19 04/02/19 History HYDROcodone/ACETAMIN 5-325 MG* 1 tab PO Q6H PRN #15 tab MDD 4 04/01/19 04/02/19 Rx [[place] 5-325 TAB*] Tamsulosin CAP* [Flomax CAP*] 0.4 mg PO DAILY #7 cap 04/01/19 04/02/19 Rx Vitamin TAB* 1 tab PO DAILY 04/02/19 04/02/19 History Positive: Abdominal Pain, Vomiting, Nausea Positive: flank pain Positive: Myalgia All Other Systems Reviewed And Are Negative: Yes Physical Exam - Summary Physical Exam Summary: General: Well-developed, Well-nourished female. No acute distress. HEENT: Normocephalic, Atraumatic. Eyes: Conjuctiva normal, PERRL. Oropharynx: Clear, mucous membranes moist, (-) exudates. Neck: Soft, FROM, (-) lymphadenopathy, (-) thyromegaly, (-) JVD. Cardiovascular: Normal sinus rhythm, (-) murmur. Lungs: Clear to auscultation bilaterally (-) wheezes, (-) rales, (-) rhonchi. Abdomen: Soft, mild suprapubic tenderness, non-distended, (-) organomegaly, normal bowel sounds. Back: Mild CVA tenderness Extremities: No edema. Skin: Warm, dry, (-) rash. Neuro: Alert and oriented x3, no focal deficits. Psychiatric: Mood normal, affect normal. Triage Information Reviewed: Yes Vital Signs On Initial Exam: Initial Vitals Temp Pulse Resp BP Pulse Ox 98.1 F 104 18 138/69 99 04/02/19 01:24 04/02/19 01:24 04/02/19 01:24 04/02/19 01:24 04/02/19 01:24 Vital Signs Reviewed: Yes Procedures - Sedation Patient Received Moderate/Deep Sedation with Procedure: No Diagnostics - Vital Signs Vital Signs Temp Pulse Resp BP Pulse Ox 04/02/19 01:37 101 98 04/02/19 01:36 92 122/71 98 04/02/19 01:24 98.1 F 104 18 138/69 99 - Laboratory Result Diagrams: 04/02/19 02:26 04/02/19 02:26 Lab Statement: Any lab studies that have been ordered have been reviewed, and results considered in the medical decision making process. Back Pain Course/Dx - Course Course Of Treatment: 23-year-old female presents with right flank pain. Patient is at 24 weeks gestation. She started having right flank pain this morning coming around to her right abdomen. Was concerned it was UTI. Her [facility] to urgent care. She had a negative urine. Her ultrasound demonstrated right hydronephrosis with lack of a jet stream on the right. Indicating probable nephrolithiasis. Patient was doing well at that time however elected to go home. Tonight the pain increased and patient had vomiting 2. She presents to the emergency room at that time. Discussed with MIXER LEVER OPERATOR on-call, Dr. Armijo. He will admit patient for IV fluids and pain control. he will try to get urology to see her as soon as possible. - Diagnoses Provider Diagnoses: Right flank pain, Hydronephrosis, right Discharge ED - Sign-Out/Discharge Documenting (check all that apply): Patient Departure - Discharge Plan Condition: Stable Disposition: ADMITTED TO [facility] Referrals: Bere Moya MD [Primary Care Provider] - - Billing Disposition and Condition Condition: STABLE Disposition: Admitted to [facility] - Attestation Statements Document Initiated by Scribe: Yes Documenting Scribe: Grace Sims Provider For Whom Estela is Documenting (Include Credential): Yecenia Neal MD. Scribe Attestation: Grace Pineda, scribed for Yecenia Neal MD. on 04/02/19 at 0518. Scribe Documentation Reviewed: Yes Provider Attestation: The documentation as recorded by the Grace stone accurately reflects the service I personally performed and the decisions made by , Yecenia Neal MD. Status of Scribe Document: Viewed
[2019-04-02 02:34] LABS: ABS Lymphocytes 1.2 10^3/ul (1.0-4.8); ABS Monocytes 0.7 10^3/ul (0-0.8); ABS Neutrophils 9.5 10^3/ul (1.5-7.7); Eosinophil % 0.2 %; Hematocrit 29 % (35-47); Hemoglobin 9.8 g/dL (12.0-16.0); Lymphocyte % 10.1 %; Mean Corpuscular HGB Conc 34 g/dL (31-36); Mean Corpuscular Hemoglobin 29 pg (27-31); Mean Corpuscular Volume 86 fL (80-97); Mean Platelet Volume 9.5 fL (7.4-10.4); Platelet Count 188 10^3/uL (150-450); Red Cell Distribution Width 13 % (10-15); White Blood Count 11.4 10^3/uL (3.5-10.8)
[2019-04-02 02:50] LABS: Albumin 3.4 g/dL (3.2-5.2); Albumin/Globulin Ratio 1.3 (1-3); BUN/Creatinine Ratio 16.3 (8-20); Calcium 8.7 mg/dL (8.6-10.3); EGFR African American 90.7 (>60); Globulin 2.7 g/dL (2-4); Potassium 3.4 mmol/L (3.5-5.0); Total Bilirubin 0.3 mg/dL (0.2-1.0); Total Protein 6.1 g/dL (6.4-8.9)
[2019-04-02] MEDS ORDERED: Morphine 4 MG/ML VIAL (1 ml) 4 MG/ML VIAL IV ONE (03:17)
[2019-04-02] MEDS ORDERED: oxyCODONE/Acetamin 5/325 MG* TAB PO PRN (03:22)
[2019-04-02] MEDS ORDERED: Ondansetron INJ* 2 MG/ML VIAL IV PRN (03:23)
[2019-04-02 03:27] VITALS: BP 118/70
[2019-04-02] MEDS ORDERED: Lactated Ringers 1000 ML Bag* 1,000 ML IV SCH (03:30)
[2019-04-02] MEDS ORDERED: Tamsulosin CAP* 0.4 MG PO SCH (09:00)
== END 2019-04-02 03:35 | disposition short-term general hospital (02) ==
LOC: ED 01:18
DX: O99.89 Other specified diseases and conditions complicating pregnancy, childbirth and the puerperium (principal); N13.30 Unspecified hydronephrosis; K21.9 Gastro-esophageal reflux disease without esophagitis; Z3A.24 24 weeks gestation of pregnancy; Z87.891 Personal history of nicotine dependence; Z79.899 Other long term (current) drug therapy
CPT/HCPCS: 36415; 80053; 85025; 96374; 99284; J2270

== ENCOUNTER 2019-04-02 03:43 | Observation (INO) | payer OTHER ==
[2019-04-02] MEDS: oxyCODONE/Acetamin 5/325 MG* TAB PO PRN ×3 (04:30→12:29)
[2019-04-02] MEDS: Lactated Ringers 1000 ML Bag* 1,000 ML IV SCH ×3 (04:30→16:05)
[2019-04-02] MEDS: Ondansetron INJ* 2 MG/ML VIAL IV PRN ×2 (06:27→15:03)
[2019-04-02] MEDS ORDERED: Tamsulosin CAP* 0.4 MG PO SCH (09:00)
--- NOTE | 2019-04-02 09:17 | HP ---
History of Present Illness - History of Present Illness Reason for Visit: Acute onset of right flank pain. History of Present Illness: Mrs. Cox is a 23 y/o lady with a due date of 07/17/19 @ 24 5/7 weeks. She presented to the [facility] yesterday afternoon with complaints of acute onset of right flank pain radiating to suprapubic area. Her pain was accompanied by Nausea/vomiting and hematuria. She was evaluated and was diagnosed with possible renal/ureteral stone and was deemed stable for discharge home to f/u with her technology solutions architect. She again presented to the emergency room around 3 am with worsening symptoms and admitted for IV hydration , analgesia and further evaluation. - Past Medical History Gastrointestinal: GERD Renal/: Other - Hx of Renal stones, pyelonephritis this Grav: 1 Para: 0 Ab: 0 - Past Surgical History Past Surgical History: None - Past Social History Smoke: No Alcohol: None Drugs: None Lives: With Family Domestic Violence: Negative - Health Maintenance Health Maintenance: Pap Smear - up to date. Review of Systems - Review of Systems Gastrointestinal: Positive: Nausea, Vomiting, Abdominal Pain - Right flank pain , suprapubic tenderness/pressure sensation - Medications/Allergies Allergies/Adverse Reactions: Allergies Allergy/AdvReac Type Severity Reaction Status Date / Time kiwi Allergy Severe See Comment Verified 04/02/19 01:51 Fish Containing Products Allergy GI Upset Verified 04/02/19 01:51 Medications: Current Medications Lactated Ringer's (Lactated Ringers 1000 Ml Bag*) 1,000 mls @ 200 mls/hr IV PER RATE HEBERT Last Admin: 04/02/19 04:30 Dose: 200 mls/hr Ondansetron HCl (Zofran Inj*) 4 mg IV Q6H PRN PRN Reason: NAUSEA/VOMITING Last Admin: 04/02/19 06:27 Dose: 4 mg Oxycodone/Acetaminophen (Percocet 5/325 Tab*) 2 tab PO Q4H PRN PRN Reason: PAIN Last Admin: 04/02/19 08:21 Dose: 2 tab Tamsulosin HCl (Flomax Cap*) 0.4 mg PO DAILY [facility] Exam - Exam Vital Signs: Vital Signs (72 hours) 04/02/19 04/02/19 04/02/19 04:00 04:30 08:21 Temperature 98.7 F Pulse Rate 86 Respiratory 18 18 18 Rate Blood Pressure 108/56 (mmHg) O2 Sat by Pulse 100 Oximetry 04/02/19 08:24 Temperature 98.7 F Pulse Rate 97 Respiratory 18 Rate Blood Pressure 114/65 (mmHg) O2 Sat by Pulse Oximetry General: Alert, Oriented x3, Cooperative, Mild distress Lungs: Clear to auscultation, Normal air movement Cardiovascular: Regular rate, Normal S1, Normal S2 Abdomen: Normal bowel sounds, Soft, Other - right CVA tenderness, abdomen gravid with palpable movement. Extremities: No edema, No tenderness/swelling Neurological: Normal speech Psych/Mental Status: Mental status NL, Mood NL Assessment/Plan - Assessment/Plan Assessment: Acute onset and persistent Right flank pain in lady with Hx of known renal stones in past and pyelonephritis this . Patient is afebrile without urinary sx other than hematuria. 1. 04/02/19 Ultrasound c/w b/l hydronephrosis and absent ureteral jets. Repeat ultrasound this am pending. 2. CBC c/w mildly elevated WBC and low hgb/hct c/w anemia. Comprehensive metabolic panel is WNL, Urine analysis positive for ketones, protein, blood and leuk esterase, Micro pending Plan: Patient's s/sx are c/w Renal lithiasis. patient admitted for IV hydration, analgesia, flomax in hopes she will pass the stone. Ultrasound pending. Urology consult if no improvemengt. Lab Results - Lab Results Lab Results: Please refer to labs CBC, Comprehensive metabolic panel, Urine analysis, Renal ultrasound from 04/02/19
--- NOTE | 2019-04-02 12:42 | PN ---
Progress Note - Progress Note Date of Service: 04/02/19 Note: 23yo at 24 weeks with renal colic and lack of ureteral jet on the right / hydronephrosis call in to consult urology for consideration of a stent
[2019-04-02] MEDS ORDERED: NS 0.9% 1000 ML** 1,000 ML IV SCH (14:00)
[2019-04-02] MEDS ORDERED: cefTRIAXone(*) 1 GM in NS 0.9% 50 ML* 50 ML IVPB SCH (14:00)
[2019-04-02] MEDS ORDERED: Ondansetron INJ* 2 MG/ML VIAL ONE (15:00)
[2019-04-02] MEDS ORDERED: Midazolam* 1 MG/ML 5 ML VIAL (5 MG) ONE (15:03)
[2019-04-02] MEDS ORDERED: Iohexol 180 (CONTRAST) 10 ML SDV IV ONE (15:04)
[2019-04-02] MEDS ORDERED: Naloxone* 0.4 MG/ML 1 ML VIAL IV PRN (15:32)
[2019-04-02] MEDS ORDERED: Acetaminophen IV 1GM/100ML * 1,000 MG/100 ML VIAL IVPB ONE (15:32)
[2019-04-02] MEDS ORDERED: Ondansetron INJ* 2 MG/ML VIAL IV ONE (15:35)
[2019-04-02] MEDS ORDERED: Acetaminophen IV 1GM/100ML * 100 ML ONE (15:43)
[2019-04-02] MEDS ORDERED: Cephalexin CAP* 500 MG PO SCH (17:00)
[2019-04-02 17:27] VITALS: BP 99/48
--- NOTE | 2019-04-02 20:15 | OP ---
CC: [facility] * DATE OF OPERATION: 04/02/19 - ROOM #112 DATE OF : 89 SURGEON: Sami. Hamilton MD ANESTHESIOLOGIST: Dr. Sainz. ANESTHESIA: IV sedation with MAC. PRE-OP DIAGNOSES: 1. Right ureteral calculus. 2. Right hydronephrosis. 3. Right renal colic due to above. 4. 25 weeks gestation. POST-OP DIAGNOSES: 1. Right ureteral calculus. 2. Right hydronephrosis. 3. Right renal colic due to above. 4. 25 weeks gestation. OPERATIVE PROCEDURE: 1. Cystoscopy. 2. Right retrograde pyelography and insertion of right ureteral stent (6-Mohawk ). INDICATIONS FOR PROCEDURE: Ms. Cox is a 23-year-old white female who is 25 weeks and presented yesterday with recurrent episodes of right renal colic. Renal ultrasound yesterday and repeated this morning continued to show moderate right hydronephrosis and no jets from the right ureteral orifice. Her urine was positive for infection and the patient had a low-grade fever. Because of the above history and the concern about possible urinary tract infection, decision was made to proceed with urgent placement of right ureteral stent. Right ureteroscopy would be contraindicated in the presence of infection. PATHOLOGY: At cystoscopy, the bladder mucosa showed minimal degree of hyperemia. There were brownish crystals inside the bladder. No efflux was seen coming from the right ureteral orifice. Clear efflux was seen coming from the left orifice. Upon right retrograde pyelography, visualization of the kidney and the proximal ureter only by fluoroscopy. There was tortuosity of the proximal right ureter and there was moderate right hydronephrosis. Following successful insertion of the open-ended catheter inside the right kidney, there was a brisk hydronephrotic drip and the urine from the right kidney looked concentrated but not purulent. DESCRIPTION OF PROCEDURE: Under intravenous sedation, with the patient in the lithotomy position, the uterus was shielded both posteriorly and anteriorly to avoid any x-ray exposure to the fetus. Only the right kidney and the proximal right ureter were visualized by fluoroscopy. The patient was then prepped and draped for a cystoscopy. Cystoscopy was performed. The bladder was inspected and the above findings were noted. A flexible-tip guidewire was then introduced into the right orifice. There was initial resistance in the distal ureter about 1 to 2 cm proximal to the orifice probably at the location of the stone. The guidewire was then successfully introduced into the area of the proximal ureter. From the appearance of the guidewire, the wire seemed to be in a tortuous portion of the ureter. Retrograde pyelography was then performed confirming 360 degrees acute tortuosity of the proximal ureter. A glidewire was then used and after several attempts, the guidewire was successfully introduced inside the renal pelvis and the tortuosity was then straightened. The open-ended catheter was then fed on top of the glidewire and positioned in the renal pelvis. Hydronephrotic drip was noted. Retrograde pyelography was performed demonstrating the dilated collecting system. A size 6-Mohawk stent was then placed with the proximal end coiling in the renal pelvis and the distal end coiling inside the bladder. There was prompted drainage of contrast from the kidney and no extravasation noted. The patient tolerated the procedure well and left the operating room in good condition. The fluoroscopy exposure was minimal. The plan is to keep the patient on antibiotics. I will see the patient back next week in the office and schedule her for elective right ureteroscopy and stone extraction. [id number]/CPS #: [id number] [facility]
== END 2019-04-02 18:41 | disposition home or self-care (01) ==
LOC: MCHOBOUT 03:43 → MCHOB 04:12
PROVIDERS: ADMIT Obstetrics & Gynecology; ATTEND Obstetrics & Gynecology
DX: O99.89 Other specified diseases and conditions complicating pregnancy, childbirth and the puerperium (principal); N13.30 Unspecified hydronephrosis; N20.0 Calculus of kidney; Z3A.25 25 weeks gestation of pregnancy; K21.9 Gastro-esophageal reflux disease without esophagitis; Z87.442 Personal history of urinary calculi; Z79.899 Other long term (current) drug therapy; R11.2 Nausea with vomiting, unspecified
CPT/HCPCS: 74420; 76770; 87077; 87086; 96361; 96374; 96376; A9270-GY; G0378; J0696; J2250; J2405

== ENCOUNTER 2019-04-11 07:20 | Day surgery (SDC) | payer OTHER ==
--- NOTE | 2019-04-10 13:34 | HP ---
CC: [facility] * INTERVAL HISTORY NOTE: DATE OF ADMISSION: 04/11/18 HISTORY OF PRESENT ILLNESS: Ms. Cox is a 23-year-old white female, who is a 26 weeks , who is admitted with history of right renal colic, suspected Rt ureteral calculus, status post replacement of right ureteral stent, for cystoscopy, right ureteroscopy, laser lithotripsy and right ureteral stent exchange. Please refer to the detailed history and physical on this patient dated . Ms. 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 She was admitted on 04/02/19 because of recurrent episodes of right flank pain. She had a low grade fever of 100.3 and her white count was slightly elevated at 11,400 with 9.5 ABS neutrophils. Her urinalysis was positive for RBC's and WBC's and positive esterase. Renal ultrasound showed moderate right hydronephrosis and no jets were noted from the right ureteral orifice. She was taken to the operating room that same day and underwent cystoscopy and insertion of right ureteral stent. Ureteroscopy was not performed because of the concern about the associated urinary tract infection. The patient did very well following the procedure with resolution of her pain and was discharged home on the same day on course of Keflex. Her urine culture ultimately did not grow any bacteria. The patient has done well. She is now admitted for the above procedure. Her past history is relevant for renal calculus disease and she passed a renal stones spontaneously in the past. She does not have other history. PAST MEDICAL HISTORY AND SYSTEM REVIEW: Again are also negative. She is in very good health. She is on no chronic medications except vitamines. She denies any allergies to medications. She is on her first . She denies recreational drug use. She is not a smoker. Family history positive for renal calculi. PHYSICAL EXAMINATION Her physical examination has not changed since her discharge. She has normal vital signs. No CVA tenderness. IMPRESSION: Clinically pt is suspected to have a right ureteral calculus, status post placement right ureteral stent in a 23-year-old patient who is 26- weeks . PLAN: Plan is for cystoscopy, right ureteroscopy, laser lithotripsy and right ureteral stent exchange. I discussed the plans with the patient and her mother. All their questions were answered. [id number]/CPS #: [id number] [facility]
[~2019-04-11 07:20] MED LIST: Buffered Lidocaine 1% SYRIN* 1 ML/SYRINGE INTRADERM ONE; Lactated Ringers 1000 ML Bag* 1,000 ML IV SCH; cefTRIAXone(*) 1 GM in NS 0.9% 50 ML* 50 ML IVPB ONE
[2019-04-11] MEDS ORDERED: cefTRIAXone(*) 1 GM ADVAN/BAG ONE (07:53)
[2019-04-11] MEDS ORDERED: Buffered Lidocaine 1% SYRIN* 1 ML/SYRINGE INTRADERM ONE (07:54)
[2019-04-11] MEDS ORDERED: Iohexol 180 (CONTRAST) 10 ML SDV IV ONE (08:54)
[2019-04-11] MEDS ORDERED: fentaNYL* 50 MCG/ML 2 ML VIAL (100 MCG VIAL) ONE (09:12)
[2019-04-11] MEDS ORDERED: Propofol* 10 MG/ML 20 ML BTL ONE (09:20)
[2019-04-11] MEDS ORDERED: Succinylcholine* 20 MG/ML 10 ML VIAL ONE (09:20)
[2019-04-11] MEDS ORDERED: Dexamethasone IV* 4 MG/ML 1 ML (4 MG) ONE (09:43)
[2019-04-11] MEDS ORDERED: HYDROmorphone INJ1* 1 MG/ML SYRINGE IV PRN (10:27)
[2019-04-11] MEDS ORDERED: Acetaminophen TAB* 325 MG PO PRN (10:27)
[2019-04-11] MEDS ORDERED: Naloxone* 0.4 MG/ML 1 ML VIAL IV PRN (10:27)
[2019-04-11] MEDS ORDERED: Acetaminophen TAB* 325 MG ONE (10:57)
[2019-04-11 13:11] VITALS: BP 102/53
--- NOTE | 2019-04-11 14:19 | OP ---
CC: [facility] OPERATIVE REPORT: DATE OF OPERATION: 04/11/19 DATE OF : [birth year] SURGEON: Zaid Villasenor MD. ANESTHESIOLOGIST: Dr. Escobedo. ANESTHESIA: General. PRE-OP DIAGNOSES: 1. Right ureteral calculus. 2. Status post placement of right ureteral stent. 3. 26 weeks gestation. POST-OP DIAGNOSES: 1. Status post placement of right ureteral stent. 2. 26 weeks gestation. 3. No right ureteral calculus identified. OPERATIVE PROCEDURE: 1. Cystoscopy. 2. Right ureteroscopy and pyeloscopy. 3. Right retrograde pyelography. 4. Right ureteral stent exchange (6-Maltese). INDICATION FOR PROCEDURE: Ms. Cox is a 23-year-old white female who is 26 weeks , who presented last week with symptoms of right renal colic and was noted to have right hydronephrosis and no jets from the right ureteral orifice. She had a low-grade fever and the urine looked possibly infected. She had Rt hydronephrosis and no jets from the Rt ureteral orifice, but no calculi were seen on the renal and bladder ultrasounds. The patient had urgent placement of a right ureteral stent. There was some resistance at the level of the distal ureter suggestive of the presence of a stone at that level. She did well postoperatively except for the stent pain. Her preoperative urine culture was negative. The patient now is admitted for right ureteroscopy and extraction of ureteral calculus. PATHOLOGY: At cystoscopy, the distal limb of the stent was seen coming from the right ureteral orifice. There was the expected edema of the bladder mucosa adjacent to the distal limb of the stent. There was the impression of the uterus on the anterior bladder wall. Upon right ureteroscopy, there was mucus and small blood clots noted in the ureter. No calculus was seen along the whole ureter and in the renal pelvis. Fluoroscopy of the kidney showed no abnormal calcifications. Right retrograde pyelography showed moderate right hydronephrosis. DESCRIPTION OF PROCEDURE: After successful general anesthesia, with the pt in the lithotomy position, the patient's uterus was shielded with x-ray aprons. Pulsed fluoroscopy was used sparingly coned over the right kidney only. The patient was then prepped and draped for a cystoscopy. Cystoscopy was performed. The bladder was inspected and the above findings were noted. The distal limb of the stent was pulled out to the level of the urethral meatus and a flexible-tip guidewire was then introduced into the lumen of the stent and positioned in the area of the renal pelvis. A 6.5 semi-rigid tapered ureteroscope was then introduced inside the bladder. A flexible-tip basket was introduced through the port of the ureteroscope and the flexible tip of the basket was introduced into the right ureter alongside the guidewire. That allowed the atraumatic introduction of the ureteroscope inside the right ureter. The ureteral lumen was dilated. Careful inspection was carried of the whole ureter all the way up into the renal pelvis and no calcifications were noted. Again were noted blood clots and some mucus. The larger ones were extracted with the basket, but no stones were noted imbedded in them. The inspection of the ureter was performed twice and again no calculi were seen. The cystoscope was then reintroduced over the guidewire. Retrograde pyelography was performed demonstrating moderately dilated collecting system. A size 6-Maltese stent was then placed with the proximal end coiling in the dilated lower pole calyx and the distal end coiling inside the bladder. There was good drainage of contrast from the kidney. The patient tolerated the procedure well and left the operating room in good condition. The expected calculus in the right ureter was not seen. The plan is to obtain a renal ultrasound before the patient's discharge to check for any possible right renal calculi. I will see the patient back in my office next week and decide on the management.If the renal ultrasound shows no calculi, will remove the stent in the office. [id number]/CPS #: [id number] CHRIS
== END 2019-04-11 13:13 | disposition home or self-care (01) ==
LOC: OR 07:20
PROVIDERS: ATTEND Urology
DX: O99.89 Other specified diseases and conditions complicating pregnancy, childbirth and the puerperium (principal); N13.1 Hydronephrosis with ureteral stricture, not elsewhere classified
CPT/HCPCS: 74420; 76775; A9270-GY; C1876; J0330; J0696; J1100; J2704; J3010

== ENCOUNTER 2019-07-18 22:20 | Inpatient (IN) | payer OTHER ==
[2019-07-18] MEDS ORDERED: Lactated Ringers 1000 ML Bag* 1,000 ML IV ONE (23:18)
[2019-07-18] MEDS ORDERED: Buffered Lidocaine 1% SYRIN* 1 ML/SYRINGE INTRADERM ONE (23:18)
--- NOTE | 2019-07-18 23:30 | HP ---
General Information - Reason for Visit Term with contractions, picking up since this afternoon in intensity. - General Information Maternal Age: 23 Grav: 1 Para: 0 SAB: 0 IEA: 0 Estimated Due Date: 07/17/19 Determined By: LMP Maternal Blood Type and Rh: A Negative - Results this Serology/RPR Result: Non-Reactive Rubella Result: Immune HBsAg Result: Negative HIV Result: Negative GBS Culture Result: Negative Past Medical History Delivery History: See Records - no previous pregnancies Pertinent Past Medical History: See Records Past Medical History Comment: Anemia Kidney stones GERD Anxiety (not on medication) Pertinent Past Surgical History: None Pertinent Family History: Non-Contributory - Antepartal Records Antepartal Records: Reviewed, Complicated by: - Rh negative; anemia Review of Systems Constitutional: Uncomfortable CV Complaint: No Respiratory: Shortness of Breath: No Gastrointestinal: No Nausea/Vomiting, Normal Bowel Movement Genitourinary: No Dysuria, No Bleeding, No Leaking Fluid Musculoskeletal: Contractions Neurological: No Headache, No Visual Changes Movement: Normal Exam Allergies/Adverse Reactions: Allergies kiwi Allergy (Severe, Verified 04/11/19 08:04) See Comment Tongue, throat swelling latex Allergy (Verified 04/11/19 08:04) Rash And Itching REDNESS AND ITCHING AFTER CONDOM USE. OK TO WEAR GLOVES, ETC Fish Containing Products Adverse Reaction (Verified 04/11/19 08:04) GI Upset BP 120/69 T 99.4 HR 82 RR 16 O2 100 - Measurements Height: 5 ft 7 in Weight: 201 lb Weight in lbs: 201.012800 Body Mass Index (BMI): 31.4 Pre- Weight: 140 lb Weight Gained This : 61 lbs and 0 ozs - Exam Breast: Breast Exam Deferred CVA: No CVA Tenderness Extremities: No Edema Heart: Normal Rhythm/Heart Sounds HEENT: No Significant Findings Lungs: Clear Bilaterally Rectal: Rectal Exam Deferred Reflexes: DTR 2+, - - no clonus Thyroid: - - no clonus - Abdominal Exam Abdomen Exam: Non-Tender, Fundal Height Consistent with Dates - Ultrasound/Biophysical Profile Ultrasound Status: Not Done Targeted Exam Findings Estimated Weight: 7.5lb Cervical Exam: 6cm Effacement: 80% Station: -1 Presenting Part: Vertex Membrane Status: Bulging Bleeding/Discharge: None EFM Findings - External Monitor Findings Baseline Heart Rate: 130 External Monitor Findings: Accelerations Present, No Pattern of Variable or Late Decelerations, Variability Moderate Contractions: Regular, Moderate, 45-90 Seconds Contraction Frequency: Q 3-4 Assessment/Plan - Assessment IUP @ 40+1 weeks gestation in active labor. No evidence acidemia. Membranes intact. - Plan Plan: Admit - Anticipate Vaginal Delivery Plan Comment: Admit to L&D. Patient agrees to IV access due to hx of anemia. May want to consider epidural if more uncomfortable but will start in the tub. - Date/Time of Admission Date of Admission: 07/18/19 Time of Admission: 23:13
[2019-07-19 01:20] LABS: ABS Basophils 0.1 10^3/ul (0-0.2); ABS Eosinophils 0.2 10^3/ul (0-0.6); ABS Lymphocytes 2.2 10^3/ul (1.0-4.8); ABS Monocytes 0.8 10^3/ul (0-0.8); ABS Neutrophils 7.5 10^3/ul (1.5-7.7); Eosinophil % 2.1 %; Hematocrit 33 % (35-47); Hemoglobin 10.9 g/dL (12.0-16.0); Lymphocyte % 20.6 %; Mean Corpuscular HGB Conc 33 g/dL (31-36); Mean Corpuscular Hemoglobin 27 pg (27-31); Mean Corpuscular Volume 82 fL (80-97); Mean Platelet Volume 9.9 fL (7.4-10.4); Platelet Count 192 10^3/uL (150-450); Red Blood Count 4.02 10^6 /uL (3.70-4.87); Red Cell Distribution Width 14 % (10-15); White Blood Count 10.9 10^3/uL (3.5-10.8)
[2019-07-19 01:44] LABS: Urine Benzodiazepine Screen None Detected (None Detect); Urine Opiates Screen None Detected (None Detect)
[2019-07-19] MEDS ORDERED: OBEPIDURAL* 250 ML EPIDURAL ONE (02:08)
[2019-07-19] MEDS ORDERED: Sodium Citrate/Citric Acid* 15 ML UDC PO PRN (02:55)
[2019-07-19] MEDS ORDERED: Famotidine TAB* 20 MG PO PRN (02:55)
[2019-07-19] MEDS ORDERED: Lactated Ringers 1000 ML Bag* 1,000 ML IV ONE (02:55)
[2019-07-19] MEDS ORDERED: Lactated Ringers 1000 ML Bag* 500 ML IV PRN ×2 (02:55)
[2019-07-19] MEDS ORDERED: Phenylephrine 40 MCG/ML SYRINGE IV PUSH PRN ×2 (02:55)
[2019-07-19] MEDS ORDERED: Lactated Ringers 1000 ML Bag* 1,000 ML IV SCH ×2 (03:00→19:00)
[2019-07-19] MEDS ORDERED: OBEPIDURAL* 250 ML EPIDURAL SCH (03:00)
--- NOTE | 2019-07-19 08:29 | PN ---
Progress Note - Progress Note Date of Service: 07/19/19 Note: S: Assuming care of Malia Cox a 23 year-old in labor at 40-2/7 weeks gestation. Comfortable and sleeping with epidural. Denies feeling increased pressure. Boyfriend at bedside and supportive O: BP 90/45 (has been running lower s/p CEI placement, asymptomatic) HR 93 T 98.8 FHT 125bpm. Moderate variability. +Accels. No decels UCs very irregular VE 6cm/80%/vtx -1 (no change). AROM clear fluid A: IUP at 40-2/7 in early active labor No evidence of metabolic acidemia Good pain relief achieved with CEI Anemia in on supplement P: Amniotomy to clear fluid. Counseled for IV pitocin augmentation of labor as well if no active labor pattern within the next 30-60 min. Pt agrees. Encourage rest.
[2019-07-19] MEDS ORDERED: Oxytocin in LR* 20 UNITS/1,000 ML BAG IVPB SCH ×2 (09:00→19:00)
[2019-07-19] MEDS: Lactated Ringers 1000 ML Bag* 1,000 ML IV SCH ×2 (09:25→12:53)
--- NOTE | 2019-07-19 10:06 | PN ---
Progress Note - Progress Note Date of Service: 07/19/19 Note: S: Pt resting comfortably. Called by RN to review FHT tracing O: BP 104/49 HR 82 FHT 125bpm. Moderate variability. Repetative late decelerations with UCs. Recover to baseline UCs q 2-4 on 4mu/IV pitocin VE 6cm/80%/vtx -1 (unchanged) A: IUP at 40-2/7 in early active labor Cat II FHT Anemia P: Dr. Zapata aware of pt presence and condition. In house and will come to consult pt. Discussed possible need for operative delivery. Reviewed with pt and boyfriend. All ?s answered. They verbalize understanding and agreement.
--- NOTE | 2019-07-19 10:09 | PN ---
Progress Note - Progress Note Date of Service: 07/19/19 Note: Quick Note: With IV pitocin off, O2 by mask and mother in left lateral FHT improved. UCs spacing out to q [address] Zapata at bedside discussing possible operative delivery with pt and boyfriend
--- NOTE | 2019-07-19 10:43 | PN ---
Progress Note - Progress Note Date of Service: 07/19/19 Note: Assessed pt given Category II FHT with recurrent early versus late decelerations and intermittent variables. Pt is a 23 y/o G1 at term who presented in labor. AROM'd earlier this AM and started on Pitocin. Occasional variable decels prior to starting pitocin, but overall reactive and reassuring tracing with moderate variability at that time. After AROM and Pitocin FH began to exhibit recurrent decelerations some with an early and some with a late pattern. Pitocin was stopped. Maternal O2 applied. IVF administered. After stopping Pitocin pt continued to contract but decelerations began to take on an appearance of recurrent variables with contractions. The tracing otherwise was reassuring with moderate variability and + accelerations. At this time patient was consented for and the risks versus benefits of continuing to pursue vaginal delivery versus proceeding with were discussed with the patient. Given reactive tracing with moderate variability and improving tracing with Pitocin off, but continued contractions it is reasonable to continue to expectant manage with close care and observation, pt agrees with this plan. On re-exam pt's cervix is 7cm/100%/+1, soft and stretchy. Suspect that fetus may be rapidly descending. Given recurrent variables, IUPC with Amnioinfusion was offered to patient. Variable decelerations resolved with placement of IUPC and Amnioinfusion. FHT is reactive with moderate variability. Pt continues to contract q 3 minutes. MVU's ~175, but contractions appear to be increasing in intensity. Will continue to expectantly manage at this time with close observation. Re-examine as clinically indicated. Re-start Pitocin if safe and clinically indicated. At this time I remain hopeful that pt may deliver vaginally. Will co-manage with CNM. DO CARLO Dowell
[2019-07-19] MEDS ORDERED: Sodium Phosphate ADULT ENEMA* 118 ml bottle PR ONE (11:00)
--- NOTE | 2019-07-19 12:33 | PN ---
Progress Note - Progress Note Date of Service: 07/19/19 Note: S: Pt feeling better s/p enema and BM. Comfortable with epidural with good movement O: BP 96/53 HR 79 FHT 120bpm. Moderate variability. +Accels. Occasional variable type decel with rare late type decel UCs MVUs 175, Amnioinfusion still running, good resting done maintained VE: 8-9/100%/vtx 0 A: IUP at 40-2/7 Cat II FHT doubt metabolic acidemia P: Encouraged positioning to help with dilation/ descent. Dr. Zapata remains in L&D and monitoring tracing/progress. Close monitoring of maternal/ status.
--- NOTE | 2019-07-19 14:39 | PN ---
Progress Note - Progress Note Date of Service: 07/19/19 Note: S: Pt increasingly uncomfortable and breathing through UCs. Reports increased vaginal pressure with UCs O: BP 105/68 HR 95 FHT 135bpm. Moderate variability. +Accels. Rare variable type decel. UCs adequate MVUs VE: anterior lip/100%/vtx +1 A: IUP at 40-2/7 in active labor Cat II FHT - doubt metabolic acidemia P: Anesthesia paged for bolus of epidural. Anticipate trial of pushing soon
[2019-07-19] MEDS ORDERED: Bupivacaine 0.25% SDV PF* 10 ML VIAL INJ ONE (14:41)
[2019-07-19] MEDS ORDERED: Witch Hazel PAD* JAR TOPICAL PRN (18:13)
[2019-07-19] MEDS ORDERED: RHO D Immune Globulin (HUMAN)* 300 MCG = 1,500 I.U. INJ IM ONE (18:13)
[2019-07-19] MEDS ORDERED: Acetaminophen TAB* 325 MG PO PRN (18:13)
[2019-07-19] MEDS ORDERED: Glycerin ADULT SUPP PR PRN (18:13)
[2019-07-19] MEDS ORDERED: Misoprostol TAB* 200 MCG PR ONE (18:15)
--- NOTE | 2019-07-19 18:24 | PROCNOTE ---
[facility] OB: Delivery Note - Delivery A Date of : 07/19/19 Time of : 17:32 [place] Sex: Female - "Cornelia" Score 1 Minute: 9 Score 5 Minutes: 9 Gestational Age in Weeks and Days at Delivery: 40 Weeks and 2 Days Delivery Method: Spontaneous Vaginal Labor: Spontaneous Did Patient attempt ?: N/A, No Previous Amniotic Fluid: Meconium Estimated Blood Loss: 350 Anesthesia/Analgesia: CEI for Labor - placed by Dr. Lozada and bolused by Dr. Velasquez Delivered By: Giselle Saini - Nursery Level of Nursery: Regular/Bedside - Perineum Perineal Injury: 1st Degree - repaired with 3-0 Rapide in the usual fashion under local infiltration 1% lidocaine and epidural analgesia. Anatomy restored and good hemostasis achieved. Pt tolerated well Perineal Injury Comment: left sublabial lac repaired with 4-0 Rapide. Anatomy restored/hemostatic Perineal Repair: By Delivering Practioner - Events Delivery Events of Note: Pitocin During Labor, Supplemental O2 to Mother Delivery Events of Note Comment: post delivery meds given for bleeding proactively due to anemia history. pitocin for very short time in labor, but then d/c'd due to category 2 tracing. iupc used with saline amnioinfusion, tight nuchal cord at delivery, summer saulted through by cnm. meconium noted in amniotic fluid after delivery of head, large terminal mec noted as well. - Risk for Falls Other Risk for Falls: none - Additional Delivery Notes Additional Delivery Notes: Patient admitted in spontaneous labor. Received epidural with excellent pain relief. After 9 hours without cervical change and increasingly irregular uterine contractions amniotomy to clear fluid and start of low dose IV pitocin resulted in regular uterine contraction pattern and a category II FHT. IV pitocin stopped. O2 by mask. Amnioinfusion initiated with good recovery of FHT. Labor continued to progress on it's own with expected progression to complete. Length of active phase 23 hours, 36 min. Pushed x 47 min. liveborn female. Slow, controlled delivery of head. OA to MOHAMUD. Tight nuchal cord x 1. Infant somersaulted through. Shoulders followed easily with maternal push. Infant vigorous with spontaneous cry. HR>110bpm. Delivered to maternal abdomen. Apgars 9/9. Cord clamped x 2 and cut by pt's boyfriend when pulsations ceased. Spontaneous delivery intact placenta. Membranes complete. Fundus firm to massage with IV pitocin infusing. Repair as above. After repair 800mcg cytotec administered per rectum x 1 due to maternal history of anemia and ongoing trickle of bleeding. EBL 350mL. At time of note mother and in stable condition. Planning to breast feed.
[2019-07-19] MEDS: Dibucaine 1% 28.35 GM TUBE PR PRN (19:52)
[2019-07-19] MEDS ORDERED: Lidocaine 1% INJ* 10 MG/ML 30 ML SDV ONE (22:54)
[2019-07-20] MEDS: Ibuprofen TAB* 600 MG PO SCH ×5 (05:42→20:07)
[2019-07-20 06:40] LABS: ABS Eosinophils 0.1 10^3/ul (0-0.6); ABS Lymphocytes 2.3 10^3/ul (1.0-4.8); ABS Monocytes 1.3 10^3/ul (0-0.8); ABS Neutrophils 13.8 10^3/ul (1.5-7.7); Eosinophil % 0.6 %; Hematocrit 30 % (35-47); Hemoglobin 9.9 g/dL (12.0-16.0); Lymphocyte % 13.2 %; Mean Corpuscular HGB Conc 34 g/dL (31-36); Mean Corpuscular Hemoglobin 27 pg (27-31); Mean Corpuscular Volume 82 fL (80-97); Mean Platelet Volume 9.8 fL (7.4-10.4); Platelet Count 171 10^3/uL (150-450); Red Blood Count 3.63 10^6 /uL (3.70-4.87); Red Cell Distribution Width 15 % (10-15); White Blood Count 17.6 10^3/uL (3.5-10.8)
[2019-07-20] MEDS: Docusate CAP* 100 MG PO SCH ×5 (07:02→20:06)
[2019-07-20] MEDS: Ferrous Gluconate TAB* 324 MG TAB PO SCH ×2 (09:00→20:06)
[2019-07-20] MEDS: Dibucaine 1% 28.35 GM TUBE PR PRN (20:07)
[2019-07-21 08:01] VITALS: BP 115/50
[2019-07-21] MEDS: Ibuprofen TAB* 600 MG PO SCH ×2 (08:21→08:54)
[2019-07-21] MEDS: Ferrous Gluconate TAB* 324 MG TAB PO SCH (08:54)
[2019-07-21] MEDS: Docusate CAP* 100 MG PO SCH (08:55)
== END 2019-07-21 13:13 | disposition home or self-care (01) | DRG 560 ==
LOC: MCHOBOUT 22:20 → MCHOB 23:13
PROVIDERS: ADMIT Midwife; ATTEND Midwife
PROC: 10E0XZZ Delivery of Products of Conception, External Approach (ICD-10-PCS; principal; 2019-07-19)
PROC: 10907ZC Drainage of Amniotic Fluid, Therapeutic from Products of Conception, Via Natural or Artificial Opening (ICD-10-PCS; 2019-07-19)
PROC: 0HQ9XZZ Repair Perineum Skin, External Approach (ICD-10-PCS; 2019-07-19)
DX: O48.0 Post-term pregnancy (principal); Z37.0 Single live birth; Z3A.40 40 weeks gestation of pregnancy; O70.0 First degree perineal laceration during delivery; O99.344 Other mental disorders complicating childbirth; F41.9 Anxiety disorder, unspecified; O99.02 Anemia complicating childbirth; D64.9 Anemia, unspecified; O69.81X0 Labor and delivery complicated by cord around neck, without compression, not applicable or unspecified; O77.0 Labor and delivery complicated by meconium in amniotic fluid; O76 Abnormality in fetal heart rate and rhythm complicating labor and delivery
CPT/HCPCS: 36415; 80307; 85025; 86850; 86900; 86901; A9270-GY; G0480; J3490